=== PATIENT | female | born 1990 | race Caucasian/White ===

== ENCOUNTER 2020-07-06 11:06 | Outpatient (REF) | payer OTHER, SELFPAY | END 2020-07-06 11:07 | disposition home or self-care (01) | LOC: HO.BBR 11:06 | PROVIDERS: PCP Physician Assistant Medical; Visit Provider Internal Medicine Hematology | DX: E83.110 Hereditary hemochromatosis (principal) | CPT/HCPCS: 99195 ==

== ENCOUNTER 2020-08-09 17:20 | Outpatient (REF) | payer OTHER, SELFPAY | END 2020-08-09 17:21 | disposition home or self-care (01) | LOC: HO.BBR 17:20 | PROVIDERS: PCP Physician Assistant Medical; Visit Provider Internal Medicine Hematology | DX: E83.110 Hereditary hemochromatosis (principal) | CPT/HCPCS: 99195 ==

== ENCOUNTER 2020-09-21 12:33 | Outpatient (REF) | payer OTHER, SELFPAY | END 2020-09-21 12:34 | disposition home or self-care (01) | LOC: HO.BBR 12:33 | PROVIDERS: Visit Provider Internal Medicine Hematology | DX: Z13.89 Encounter for screening for other disorder (principal) ==